=== PATIENT | male | born 1990 | race Caucasian/White ===

== ENCOUNTER 2017-03-30 09:45 | Emergency (ER) | payer OTHER ==
[2017-03-30 10:24] VITALS: BP 137/91
[2017-03-30] MEDS ORDERED: Ibuprofen TAB* 600 MG PO ONE (10:48)
--- NOTE | 2017-03-30 10:48 | UC ---
Throat Pain/Nasal Issac HPI - HPI Summary HPI Summary: 26 year old male with 2 weeks of sore throat and right ear pain. Pt states his niece was ill with similar symptoms but he is not getting better. Ibuprofen 3 days ago did give mild temp relief. Denies headache, rash, cough, nausea or vomiting. - History of Current Complaint Chief Complaint: UCGeneralIllness Stated Complaint: RIGHT EAR PAIN, SORE THROAT Time Seen by Provider: 03/30/17 10:19 Hx Obtained From: Patient Onset/Duration: Gradual Onset, Lasting Weeks - 2, Worse Since - today Severity: Moderate Pain Scale Used: 0-10 Numeric - 6 Cough: None Associated Signs & Symptoms: Positive: Dysphagia. Negative: FB Sensation, Drooling, Wheezing, Hoarseness, Sinus Discomfort, Nasal Discharge, Fever, Vomiting, Rash - Epiglottits Risk Factors Epiglottis Risk Factors: Negative - Allergies/Home Medications Allergies/Adverse Reactions: Allergies Allergy/AdvReac Type Severity Reaction Status Date / Time No Known Allergies Allergy Verified 03/30/17 10:24 Home Medications: Home Medications Fluocinonide 0.05% CREAM(NF) 1 applic TOPICAL BEDTIME 03/30/17 [History Confirmed 03/30/17] PMH/Surg Hx/FS Hx/Imm Hx Previously Healthy: Yes - Surgical History Surgical History: Yes Surgery Procedure, Year, and Place: appy - Family History Known Family History: Negative: Cardiac Disease, Hypertension - Social History Occupation: Employed Full-time Lives: With Family Alcohol Use: Occasionally Substance Use Type: None Smoking Status (MU): Never Smoked Tobacco - Immunization History Most Recent Influenza Vaccination: none Review of Systems Constitutional: Negative Skin: Negative Eyes: Negative ENT: Sore Throat, Ear Ache - right Respiratory: Negative Cardiovascular: Negative Gastrointestinal: Negative Genitourinary: Negative Motor: Negative Neurovascular: Negative Musculoskeletal: Negative Neurological: Negative Psychological: Negative Is Patient Immunocompromised?: No All Other Systems Reviewed And Are Negative: Yes Physical Exam Triage Information Reviewed: Yes Appearance: Well-Nourished, Ill-Appearing Vital Signs: Initial Vital Signs Temp 98.3 F 03/30/17 10:18 Pulse 70 03/30/17 10:18 Resp 16 03/30/17 10:18 BP 137/91 03/30/17 10:18 Pulse Ox 100 03/30/17 10:18 Vital Signs Reviewed: Yes Eyes: Positive: Conjunctiva Clear. Negative: Discharge ENT: Positive: Pharyngeal erythema - significant, TM dull - and retracted at right TM, Uvula midline. Negative: Nasal congestion, Nasal drainage, Tonsillar swelling, Tonsillar exudate, Muffled voice, Hoarse voice, Sinus tenderness Neck: Positive: Supple, Nontender, Enlarged Nodes @ - bilateral AC Respiratory: Positive: Lungs clear, Normal breath sounds, No respiratory distress Cardiovascular: Positive: RRR, No Murmur Abdomen Description: Positive: Soft. Negative: Distended, Guarding Musculoskeletal: Positive: Strength Intact, ROM Intact, No Edema Neurological: Positive: Alert, Muscle Tone Normal Psychological: Positive: Age Appropriate Behavior - pleasant and cooperative Skin: Negative: rashes, breakdown Throat Pain/Nasal Course/Dx - Course Course Of Treatment: Rapid Strep - negative. Education on length of symptoms and findings and antibiotics - Differential Dx/Diagnosis Differential Diagnosis/HQI/PQRI: Otitis Media, Sinusitis, URI Provider Diagnoses: Pharyngitis. URI Discharge - Discharge Plan Condition: Stable Disposition: HOME Prescriptions: Amoxicillin PO (*) [Amoxicillin 500 MG CAP*] 500 mg PO Q12H #20 cap Patient Education Materials: Pharyngitis (ED) Referrals: Glendy Montanez [Primary Care Provider] - 5 Days
== END 2017-03-30 11:31 | disposition home or self-care (01) ==
LOC: UCCORT 09:45
DX: J02.9 Acute pharyngitis, unspecified (principal)
CPT/HCPCS: 87651; 99212; A9270-GY; G0463

== ENCOUNTER 2018-10-20 11:20 | Emergency (ER) | payer BC, OTHER ==
[2018-10-20 11:45] VITALS: BP 117/83
--- NOTE | 2018-10-20 12:14 | UC ---
Ear Complaint HPI - HPI Summary HPI Summary: 28-year-old male comes in with a chief complaint of right ear pain. Patient reports that all started back in February 2018. He was traveling in [place] and he had an upper respiratory tract infection. He felt congested and when he took the airplane back tonight states he had a lot of pain in the right ear. The pain went away when he came back down to altitude. He's been having some decreased hearing in pain on and off since that time. A month ago he had a trial amoxicillin from his primary care physician. He reports that did not make any difference. Coming in today because he is continuing to have it right ear pressure and some decreased hearing. No fevers or chills no runny nose no sinus congestion no environmental allergies or hayfever at this time. No sore throat. - History of Current Complaint Chief Complaint: UCEar Stated Complaint: BILATERAL EAR PAIN Time Seen by Provider: 10/20/18 11:57 Pain Intensity: 5 - Allergies/Home Medications Allergies/Adverse Reactions: Allergies Allergy/AdvReac Type Severity Reaction Status Date / Time No Known Allergies Allergy Verified 10/20/18 11:41 Home Medications: Home Medications Secukinumab [Cosentyx] 150 mg SC Q30D 10/20/18 [History Confirmed 10/20/18] PMH/Surg Hx/FS Hx/Imm Hx Previously Healthy: Yes - Surgical History Surgical History: Yes Surgery Procedure, Year, and Place: Appendectomy, 2010, May - Family History Known Family History: Negative: Cardiac Disease, Hypertension - Social History Alcohol Use: Occasionally Substance Use Type: None Smoking Status (MU): Never Smoked Tobacco - Immunization History Most Recent Influenza Vaccination: none Review of Systems All Other Systems Reviewed And Are Negative: Yes Constitutional: Positive: Negative Skin: Positive: Negative Eyes: Positive: Negative ENT: Positive: Ear Ache Respiratory: Positive: Negative Cardiovascular: Positive: Negative Gastrointestinal: Positive: Negative Motor: Positive: Negative Neurovascular: Positive: Negative Musculoskeletal: Positive: Negative Neurological: Positive: Negative Psychological: Positive: Negative Is Patient Immunocompromised?: No Physical Exam Triage Information Reviewed: Yes Appearance: Well-Appearing, No Pain Distress, Well-Nourished Vital Signs: Initial Vital Signs Temp 97.8 F 10/20/18 11:40 Pulse 66 10/20/18 11:40 Resp 15 10/20/18 11:40 BP 117/83 10/20/18 11:40 Pulse Ox 99 10/20/18 11:40 Vital Signs Reviewed: Yes Eye Exam: Normal Eyes: Positive: Conjunctiva Clear ENT: Positive: Pharynx normal, TM dull - RT WITH CLEAR FLUID BEHIND. Negative: Nasal congestion, Nasal drainage Neck: Positive: Supple Respiratory: Positive: Lungs clear, Normal breath sounds, No respiratory distress Cardiovascular: Positive: RRR Musculoskeletal: Positive: Strength Intact, ROM Intact Neurological Exam: Normal Neurological: Positive: Alert, Muscle Tone Normal Psychological Exam: Normal Psychological: Positive: Age Appropriate Behavior Skin Exam: Normal Ear Complaint Course/Dx - Course Course Of Treatment: No infection apparent today. The fluid behind the right TM is clear. Due to the duration of symptoms I let the patient know that he should follow-up with ear nose and throat. Go to start Flonase and [id number] antihistamine to see if that helps. - Differential Dx/Diagnosis Provider Diagnosis: Acute serous otitis media of right ear Discharge - Sign-Out/Discharge Documenting (check all that apply): Patient Departure All imaging exams completed and their final reports reviewed: No Studies - Discharge Plan Condition: Stable Disposition: HOME Prescriptions: Fluticasone NASAL SPRAY 50MCG* [Flonase NASAL SPRAY 50MCG*] 2 spray BOTH NARES DAILY #1 btl Patient Education Materials: Serous Otitis Media (ED) Referrals: Glendy Montanez [Primary Care Provider] - Additional Instructions: FOLLOW UP WITH ENT, EITHER DR KIRK OR DR MARTINEZ. TAKE AN OVER THE COUNTER ANTIHISTAMINE SUCH CLARATIN, ZYRTEC OR XYZAL. GET RECHECKED SOONER IF YOUR CONDITION WORSENS OR ANY QUESTIONS OR CONCERNS. - Billing Disposition and Condition Condition: STABLE Disposition: Home
== END 2018-10-20 12:19 | disposition home or self-care (01) ==
LOC: UCCORT 11:20
DX: H65.01 Acute serous otitis media, right ear (principal)
CPT/HCPCS: 99212; G0463